=== PATIENT | male | born 1955 | race Caucasian/White ===

== ENCOUNTER 2016-08-24 09:37 | Emergency (ER) | payer SELFPAY ==
--- NOTE | 2016-08-24 10:00 | ER Document Report ---
ED Medical Screen (RME) - General Chief Complaint: Inability to Void Stated Complaint: RIGHT HIP PAIN Time Seen by Provider: 08/24/16 09:52 Mode of Arrival: Wheelchair Information source: Patient Notes: This is a 60-year-old male with a history of chronic back pain who states that he has recently moved back to the area from [place]. He presents with several week history of worsening low back pain radiating down the right lower extremity. He states that for the past few days he has had difficulty urinating. He feels like he needs to urinate but then has difficulty. He reports a new numbness down the right lower extremity to his toes. He states that he ran out of his oxycodone 4 days ago. He denies any fevers or chills. I have greeted and performed a rapid initial assessment of this patient. A comprehensive ED assessment and evaluation of the patient, analysis of test results and completion of the medical decision making process will be conducted by additional ED providers. TRAVEL OUTSIDE OF THE [place] IN LAST 30 DAYS: No - Related Data Allergies/Adverse Reactions: baclofen Allergy (Verified 08/24/16 09:39) hydrocodone Allergy (Verified 08/24/16 09:39) Past Medical History Renal/ Medical History: Denies: Hx Peritoneal Dialysis Physical Exam - Vital signs Vitals: Temp Pulse Resp BP Pulse Ox 97.9 F 85 22 H 150/106 H 97 08/24/16 09:40 08/24/16 09:40 08/24/16 09:40 08/24/16 09:40 08/24/16 09:40 Course - Vital Signs Vital signs: Temp Pulse Resp BP Pulse Ox 97.9 F 85 22 H 150/106 H 97 08/24/16 09:40 08/24/16 09:40 08/24/16 09:40 08/24/16 09:40 08/24/16 09:40
[2016-08-24] MEDS ORDERED: OXYCODONE-ACETAMINOPHEN 5-325 MG TABLET PO ONE (10:01)
[2016-08-24] MEDS ORDERED: LIDOCAINE 5% (700 MG) TRANSDERMAL ADH..PATCH TP ONE (10:41)
[2016-08-24] MEDS ORDERED: IPRATROPIUM/ALBUTEROL 0.5-2.5 MG/3 ML AMPUL NEB ONE (10:41)
[2016-08-24] MEDS ORDERED: DEXAMETHASONE SOD PHOS INJ 10 MG/1 ML VIAL IM ONE (10:41)
[2016-08-24 10:48] LABS: APPEARANCE,URINE CLEAR; BILIRUBIN,URINE NEGATIVE (NEGATIVE); GLUCOSE, URINE NEGATIVE (NEGATIVE); KETONES,URINE TRACE mg/dL (NEGATIVE); LEUKOCYTE ESTERASE,URINE NEGATIVE (NEGATIVE); NITRITE,URINE NEGATIVE (NEGATIVE); PROTEIN,URINE NEGATIVE (NEGATIVE); URINE SPECIFIC GRAVITY 1.016
--- NOTE | 2016-08-24 11:26 | ER Document Report ---
ED General - General Chief Complaint: Inability to Void Stated Complaint: RIGHT HIP PAIN Time Seen by Provider: 08/24/16 09:52 Mode of Arrival: Wheelchair TRAVEL OUTSIDE OF THE [place] IN LAST 30 DAYS: No - HPI Patient complains to provider of: Right hip pain difficulty in urinating Notes: Patient coming in today for right hip pain and difficulty in urinating. Patient states having dysuria. Patient states she is to be on chronic pain medication and pain management when he was in [place] recently moved to the area approximately 3 months ago. Patient narcotic database does show 3 prescriptions of narcotic medications from [place] in May. Patient states he is recently ran out of his medication has not followed up with any local providers. Patient states sharp shooting pain in his hip felt a popping sensation approximately 3 weeks prior and since that time has some numbness on the lateral side of his leg. Patient was amatory upon his arrival here in the ER. Patient denies any IV drug use. Patient denies any bowel or bladder incontinence. - Related Data Allergies/Adverse Reactions: baclofen Allergy (Verified 08/24/16 09:39) hydrocodone Allergy (Verified 08/24/16 09:39) Past Medical History - General Information source: Patient - Social History Smoking Status: Current Every Day Smoker Chew tobacco use (# tins/day): No Frequency of alcohol use: None Drug Abuse: None Family History: Reviewed & Not Pertinent Patient has suicidal ideation: No Patient has homicidal ideation: No Pulmonary Medical History: Reports: Hx Bronchitis, Hx COPD, Hx Pneumonia Renal/ Medical History: Denies: Hx Peritoneal Dialysis Surgical Hx: Negative Review of Systems - Review of Systems Constitutional: No symptoms reported EENT: No symptoms reported Cardiovascular: No symptoms reported Respiratory: No symptoms reported Gastrointestinal: No symptoms reported Genitourinary: Dysuria Male Genitourinary: No symptoms reported Musculoskeletal: Other - Right hip pain Skin: No symptoms reported Hematologic/Lymphatic: No symptoms reported Neurological/Psychological: No symptoms reported -: Yes All other systems reviewed and negative Physical Exam - Vital signs Vitals: Temp Pulse Resp BP Pulse Ox 97.9 F 85 22 H 150/106 H 97 08/24/16 09:40 08/24/16 09:40 08/24/16 09:40 08/24/16 09:40 08/24/16 09:40 Interpretation: Normal - General General appearance: Appears well, Alert - HEENT Head: Normocephalic, Atraumatic Eyes: Normal Pupils: PERRL - Respiratory Respiratory status: No respiratory distress Chest status: Nontender Breath sounds: Normal Chest palpation: Normal - Cardiovascular Rhythm: Regular Heart sounds: Normal auscultation Murmur: No - Abdominal Inspection: Normal Distension: No distension Bowel sounds: Normal Tenderness: Nontender Organomegaly: No organomegaly - Rectal Prostate: Enlarged Notes: Patient with normal rectal tone no saddle anesthesias - Back Back: Normal, Nontender - Extremities General upper extremity: Normal inspection, Nontender, Normal color, Normal ROM , Normal temperature General lower extremity: Normal inspection, Nontender, Normal color, Normal ROM , Normal temperature, Normal weight bearing. No: Fariba's sign - Neurological Neuro grossly intact: Yes Cognition: Normal Orientation: AAOx4 [place] Coma Scale Eye Opening: Spontaneous [place] Coma Scale Verbal: Oriented Binh Coma Scale Motor: Obeys Commands [place] Coma Scale Total: 15 Speech: Normal Motor strength normal: LUE, RUE, LLE, RLE Sensory: Normal - Psychological Associated symptoms: Normal affect, Normal mood - Skin Skin Temperature: Warm Skin Moisture: Dry Skin Color: Normal Course - Re-evaluation Re-evalutation: 08/24/16 18:33 Patient coming in for evaluation of pain and dysuria. Urinalysis does show any pathology. Patient will be given pain control will start patient on Flomax for enlarged prostate. No signs of prostatitis. Patient was encouraged follow-up with pain management as well. - Vital Signs Vital signs: Temp Pulse Resp BP Pulse Ox 97.9 F 77 24 H 145/85 H 94 08/24/16 11:32 08/24/16 11:32 08/24/16 11:32 08/24/16 11:32 08/24/16 11:32 - Laboratory Laboratory results interpreted by me: 08/24/16 10:10 Urine Ketones TRACE H Urine Urobilinogen 2.0 H Discharge - Discharge Clinical Impression: Enlarged prostate on rectal examination Hip pain, chronic Qualifiers: Laterality: right Qualified Code(s): M25.551 - Pain in right hip COPD (chronic obstructive pulmonary disease) Qualifiers: COPD type: unspecified COPD Qualified Code(s): J44.9 - Chronic obstructive pulmonary disease, unspecified Condition: Good Disposition: HOME, SELF-CARE Instructions: Family Physicians / Practices, Chronic Pain Control ([facility]), Pain Management, Stretching Exercises for the Back ([facility]), Prostatic Hypertrophy ([facility]) , Flomax ([facility]) Additional Instructions: Your examination today revealed that your prostate is enlarged. Your urinalysis did not show any signs of infection. I recommend taking the Flomax to aid in your inability to urinate. Please make sure that you are drinking plenty water to stay hydrated. I will give you a refill of your DuoNeb today. Your back and hip pain seem to be chronic at this time. No signs of acute pathology. I highly recommend that she establish herself with a primary care physician for possible pain management. We will give you a a prescription for narcotic pain medication today however we do not control chronic pain here in the ER. You did not receive any further narcotic pain medications for your chronic pain from this ER. This implies an appointment to stab herself with a primary care physician. I will give her information to our ER social insurance adviser that she can help you change your insurance. For your pain control I would recommend alternating every 4 hours between Tylenol and Motrin. He may take 650 mg to 1000 mg of Tylenol 4 times a day. He may take Motrin 600 mg 3 times a day for your pain control. Use of the narcotic pain medication for severe pain. Prescriptions: Ipratropium/Albuterol Sulfate [Duoneb 3 ml Ampul] 3 ml NEB RTQ4 30 Days Oxycodone HCl 5 mg PO Q6 #30 tablet Prednisone [Deltasone 20 mg Tablet] 60 mg PO DAILY #15 tablet Tamsulosin HCl [Flomax 0.4 mg Cap.sr] 0.4 mg PO DAILY #14 cap.sr.24h
[2016-08-24 11:51] VITALS: BP 145/85
== END 2016-08-24 11:50 | disposition home or self-care (01) ==
LOC: ER 09:37
DX: N40.0 Benign prostatic hyperplasia without lower urinary tract symptoms (principal); J44.9 Chronic obstructive pulmonary disease, unspecified; M25.551 Pain in right hip; F17.200 Nicotine dependence, unspecified, uncomplicated; Z88.6 Allergy status to analgesic agent
CPT/HCPCS: 94640; 99284; 96372; 87086; 81001; J1100; J7620

== ENCOUNTER 2016-09-12 09:13 | Emergency (ER) | payer MEDICAID ==
[2016-09-12] MEDS ORDERED: TRIAMCINOLONE ACETONIDE INJ 40 MG/1 ML VIAL INJ ONE (09:45)
[2016-09-12] MEDS ORDERED: LIDOCAINE 1% INJ (10 MG/ML) 10 ML MDV INJ ONE (09:49)
[2016-09-12] MEDS ORDERED: BUPIVACAINE HCL 0.5 % INJ/PF 30 ML SDV INJ ONE (09:50)
--- NOTE | 2016-09-12 09:54 | ER Document Report ---
HPI - HPI Pain Level: 5 Notes: Patient is a 60-year-old male with chronic low back pain who presents to the ED complaining of right hip and right buttock pain 1 month. Patient states that he was in the ED about 3 weeks ago and was given some pain medication, steroids , lidocaine patch with minimal relief. Patient states that he does have continued low back pain with radiculitis down his right lower extremity into his right lateral foot. Patient states that he has not had any recent injury. He has not had any loss control of bowel/bladder. He still eating and drinking without problems. His urination and bowel movements have been normal. Standing and ambulation with pain worse. Laying supine helps the pain a little bit. He has not been able to establish with a PCM yet. He is waiting for his state insurance through [place] which should be done within the next 3 weeks. Denies any fever, URI, sore throat, chest pain, palpitations, shortness breath, dyspnea, abdominal pain, nausea/vomiting/diarrhea/constipation, urinary retention, dysuria, muscle weakness/paralysis, or rash. Denies any IV drug use. - ROS Notes: REVIEW OF SYSTEMS: CONSTITUTIONAL : Denies fever, chills, or sweats. Denies recent illness. EENT: Denies eye, ear, throat, or mouth pain or symptoms. Denies nasal or sinus congestion or discharge. Denies throat, tongue, or mouth swelling or difficulty swallowing. CARDIOVASCULAR: Denies chest pain. Denies palpitations or racing or irregular heart beat. Denies ankle edema. RESPIRATORY: Denies cough, cold, or chest congestion. Denies shortness of breath, difficulty breathing, or wheezing. GASTROINTESTINAL: Denies abdominal pain or distention. Denies nausea, vomiting , or diarrhea. Denies blood in vomitus, stools, or per rectum. Denies black, tarry stools. Denies constipation. GENITOURINARY: Denies difficulty urinating, painful urination, burning, frequency, blood in urine, or discharge. MUSCULOSKELETAL: see hpi SKIN: Denies rash, bruising NEUROLOGICAL: see hpi ALL OTHER SYSTEMS REVIEWED AND NEGATIVE. Dictation was performed using [employer] voice recognition software - DERM Skin Color: Normal Past Medical History - Social History Smoking Status: Current Every Day Smoker Family History: Reviewed & Not Pertinent Patient has suicidal ideation: No Patient has homicidal ideation: No Pulmonary Medical History: Reports: Hx Bronchitis, Hx COPD, Hx Pneumonia Renal/ Medical History: Denies: Hx Peritoneal Dialysis Vertical Provider Document - CONSTITUTIONAL Notes: PHYSICAL EXAMINATION: GENERAL: Well-appearing, well-nourished and in no acute distress. LUNGS: Breath sounds clear to auscultation bilaterally and equal. No wheezes rales or rhonchi. HEART: Regular rate and rhythm without murmurs, rubs, gallops. ABDOMEN: Soft, nontender, nondistended abdomen. No guarding, no rebound. No masses appreciated. Normal bowel sounds present. No CVA tenderness bilaterally. Sphincter tone intact. No pulsatile mass. Musculoskeletal: No skin changes to the back. FROM to passive/active LE's b/l. Strength 5+/5. SLR min. + to Rt leg at 90 degrees. + tenderness to the rt troch bursa. + tenderness to the rt SI joint. Extremities: No cyanosis, clubbing, or edema b/l. Peripheral pulses 2+. Capillary refill less than 3 seconds. NEUROLOGICAL: Normal speech, normal gait. + slight dec to in sensation to light touch rt LE vs Lt, motor exams. Reflexes 2+ peripherally. PSYCH: Normal mood, normal affect. SKIN: Warm, Dry, normal turgor, no rashes or lesions noted. - INFECTION CONTROL TRAVEL OUTSIDE OF THE [place] IN LAST 30 DAYS: No - RESPIRATORY O2 Sat by Pulse Oximetry: 95 Course - Re-evaluation Re-evalutation: 09/12/16 10:56 Patient is afebrile, well-hydrated, 60-year-old male who presents with right trochanteric bursitis and right sacroiliitis along with chronic back pain. Vitals are stable. And 80 mg Kenalog injection combined with lidocaine and Sensorcaine were injected into the right trochanteric bursa. Patient was noted to be pain-free 5 minutes later to the right "hip ." Based on work up today, I have a low suspicion for any EXPANDING OR RUPTURED ABDOMINAL AORTIC ANEURYSM, CAUDA EQUINA SYNDROME, EPIDURAL MASS LESION, or HERNIATED DISK CAUSING SEVERE SPINAL STENOSIS. I will send him home with a steroid taper, Voltaren gel, and a few tablets of oxycodone. Explained to patient that the ED does not care for chronic pain management and that he may not get any more narcotics for the same issues. Conservative measures otherwise for symptoms. Recheck with PCM in 2-3 days. Return to the ED as needed otherwise for worsening/concerning symptoms as reviewed in discharge. Patient in agreement. - Vital Signs Vital signs: Temp Pulse Resp BP Pulse Ox 97.8 F 84 20 133/83 H 95 09/12/16 09:17 09/12/16 09:17 09/12/16 09:17 09/12/16 09:17 09/12/16 09:17 Procedures - Additional Procedures trigger point injection Time performed: 10:45 Additional Procedures: Other - Rt troch bursitis trigger point injection Notes: 09/12/16 10:59 Risks/benefits, procedure reviewed with the patient Verbal/written consent obtained Area cleansed with Shur-Clens and alcohol pads 80 mg of Kenalog combined with 2 mL lidocaine 1% plain and 2 mL's Sensorcaine 0.5% utilized to inject the trigger point No blood loss No complications Patient tolerated procedure well After 5 minutes patient was pain-free to the troch bursa. Discharge - Discharge Clinical Impression: Sacroiliitis Trochanteric bursitis Qualifiers: Laterality: right Qualified Code(s): M70.61 - Trochanteric bursitis, right hip Chronic low back pain Qualifiers: Back pain laterality: unspecified Sciatica presence: unspecified whether sciatica present Qualified Code(s): M54.5 - Low back pain Condition: Stable Disposition: HOME, SELF-CARE Additional Instructions: Rest, Ice, Compression, Elevation Tylenol/ibuprofen as needed Use/take meds as directed Light stretches daily Strength exercises as able Moist heat and massage may help F/u with your PCP in 2-3 days for a recheck Consider consult(s) with Orthopedics for ongoing/worsening symptoms Return to the ED with any worsening symptoms and/or development of fever, headache, chest pain, palpitations, syncope, shortness of breath, trouble breathing, abdominal pain, n/v/d, blood in stool/urine, urinary retention, muscle weakness/paralysis, or other worsening symptoms that are concerning to you. Prescriptions: Diclofenac Sodium [Voltaren] 100 gm TP QID PRN #100 gel..gm. PRN Reason: Oxycodone HCl [Oxycodone HCl 10 MG Tablet] 1 tab PO BID #10 tablet Prednisone [Deltasone 10 mg Tablet] 10 mg PO ASDIR PRN #21 tablet PRN Reason: Forms: Elevated Blood Pressure, Smoking Cessation Education Referrals: [facility] [Provider Group] - Follow up as needed
[2016-09-12] MEDS ORDERED: LIDOCAINE 1% INJ-PF (10 MG/ML) 30 ML SDV INJ ONE (09:56)
[2016-09-12 10:57] VITALS: BP 132/80
== END 2016-09-12 10:57 | disposition home or self-care (01) ==
LOC: ER 09:13
PROC: 3E0T3BZ Introduction of Anesthetic Agent into Peripheral Nerves and Plexi, Percutaneous Approach (ICD-10-PCS; principal; 2016-09-12)
DX: M70.61 Trochanteric bursitis, right hip (principal); M46.1 Sacroiliitis, not elsewhere classified; G89.29 Other chronic pain; M54.5 Low back pain; R20.8 Other disturbances of skin sensation; J44.9 Chronic obstructive pulmonary disease, unspecified; F17.200 Nicotine dependence, unspecified, uncomplicated
CPT/HCPCS: 99283; 64450; J3490 ×2